=== PATIENT | female | born 1970 | race Caucasian/White ===

== ENCOUNTER → 2024-05-07 13:31 | Outpatient (REF) | payer OTHER, SELFPAY | LOC: RAD 13:31 | PROVIDERS: ATTENDING PHYSICIAN Urology; FAMILY PHYSICIAN Physician Assistant Medical | DX: N30.10 Interstitial cystitis (chronic) without hematuria (principal); M62.89 Other specified disorders of muscle; N39.0 Urinary tract infection, site not specified; N11.9 Chronic tubulo-interstitial nephritis, unspecified | CPT/HCPCS: 76770; 76856 ==

== ENCOUNTER → 2024-10-30 12:18 | Outpatient (REF) | payer OTHER, SELFPAY | LOC: RAD 12:18 | PROVIDERS: ATTENDING PHYSICIAN Urology; FAMILY PHYSICIAN Physician Assistant Medical | DX: N30.10 Interstitial cystitis (chronic) without hematuria (principal); M62.89 Other specified disorders of muscle; N39.0 Urinary tract infection, site not specified; N13.30 Unspecified hydronephrosis; R10.9 Unspecified abdominal pain | CPT/HCPCS: 74178; Q9967 ==